=== PATIENT | female | born 1980 | race Caucasian/White ===

== ENCOUNTER 2016-10-25 11:49 | Emergency (ER) | payer OTHER ==
[~2016-10-25] VITALS: Wt 79.0 kg
[~2016-10-25 11:49] MED LIST: CLON0.2T5 PO; FAMO20TA18 PO; LEVO750T25 PO
[2016-10-25] MEDS ORDERED: DIPHENHYDRAMINE 50 MG INJ IM ONE (13:00)
[2016-10-25] MEDS ORDERED: METHYLPREDNISOLONE 125 MG INJ IM ONE (13:00)
--- NOTE | 2016-10-25 13:12 | ERD ---
ER Documentation Chief Complaint Date/Time DATE: 10/25/16 TIME: 13:08 Chief Complaint ITCHY FOLLOWING BP MEDS HPI 36-year-old female presents to the emergency department with diffuse itching and erythema that started an hour after taking her blood pressure medication this morning. Patient states that she takes medication for blood pressure usually at nighttime, she has been taking this for 4 years but does not recall the name at this time. She went to work and she is out like her blood pressure is high she felt hot, and then she took a blood pressure medication an hour later she got a rash. She does not recall taking new foods, medications or lotions or creams. She has no known allergies. She has not had any trouble swallowing, shortness of breath. ROS All systems reviewed and are negative except as per history of present illness. Medications Home Meds Active Scripts Levofloxacin* (Levaquin*) 750 Mg Tablet, 750 MG PO DAILY for 7 Days, TAB Prov:CHANDLER PHAN 07/12/15 Clonidine Hcl* (Clonidine Hcl*) 0.2 Mg Tablet, 0.2 MG PO BID, #20 TAB Prov:NICHO MERAZ MD 04/23/15 Reported Medications Famotidine* (Famotidine*) 20 Mg Tablet, 20 MG PO BID, TAB 12/22/14 Allergies Allergies: Coded Allergies: No Known Drug Allergy (Verified Allergy, Mild, 12/22/14) PMhx/Soc History of Surgery: Yes (1X C SECTION, GALLBLADDER (LASER) SURGERY, HERNIA SURGERY) Anesthesia Reaction: No Hx Neurological Disorder: No Hx Respiratory Disorders: No Hx Cardiac Disorders: No Hx Psychiatric Problems: No Hx Miscellaneous Medical Probl: No Hx Alcohol Use: No Hx Substance Use: No Hx Tobacco Use: No Physical Exam Vitals Vital Signs Date Time Temp Pulse Resp B/P Pulse Ox O2 Delivery O2 Flow Rate FiO2 10/25/16 12:02 98.0 94 18 177/75 99 Physical Exam General: Well-developed, well-nourished. The patient appears in no acute distress. HEENT: Head is normocephalic, atraumatic. No scleral icterus. Neck: Supple. Nontender. Lungs: Clear to auscultation. Normal air movement. Heart: Regular rate and rhythm. S1 and S2 are normal. No murmurs, gallops, or rubs. Abdomen: Soft, nontender, nondistended. Bowel sounds are normoactive. Extremities: No clubbing or cyanosis. Normal pulses. Moving extremities x 4. No weakness. Neurologic: Alert and oriented 3. No focal deficits. Skin: Blotchy, erythematous rash, patient's face, extremities and trunk are involved. Results 24 hrs Current Medications Medications (Trade) Dose Ordered Sig/Toan Route PRN Reason Start Time Stop Time Status Last Admin Dose Admin Diphenhydramine HCl (Benadryl) 50 mg ONCE ONCE IM 10/25/16 13:00 10/25/16 13:01 DC 10/25/16 12:53 Methylprednisolone Sodium Succinate (Solu-Medrol) 125 mg ONCE ONCE IM 10/25/16 13:00 10/25/16 13:01 DC 10/25/16 12:53 Procedures/MDM ED course: Patient was given Solu-Medrol 125 mg IM, as well as Benadryl 50 mg IM. MDM: 36-year-old female comes emergency room with allergic reaction, rash is erythematous and itchy. It is unlikely due to her blood pressure medication as she has been taking this for 4 years. She does not recall the name at this time. She likely was feeling this way because of the reaction, she felt like she was getting hot. Patient's allergic symptoms have stabilized while they have been evaluated in the department without evidence of persistent systemic reaction. Patient is healthy and capable of treating and responding to rebound reactions. Patient appropriate for outpatient allergy work up and treatment. Departure Diagnosis: Primary Impression: Allergic reaction Condition: CASEY Johnson PA-C Oct 25, 2016 13:12
[2016-10-25] MEDS ORDERED: BEN25 PO (13:13)
[2016-10-25] MEDS ORDERED: RANI150T9 PO (13:13)
[2016-10-25] MEDS ORDERED: PRED20TA PO (13:13)
== END 2016-10-25 13:56 | disposition home or self-care (01) ==
LOC: FTE 11:49
DX: R21 Rash and other nonspecific skin eruption (principal); L53.9 Erythematous condition, unspecified
CPT/HCPCS: 96372; J1200; J2930; Z7502

== ENCOUNTER 2017-10-17 08:15 | Emergency (ER) | END 2017-10-17 10:37 | disposition home or self-care (01) ==

== ENCOUNTER 2018-03-13 05:31 | Emergency (ER) | END 2018-03-13 08:39 | disposition home or self-care (01) ==

== ENCOUNTER 2018-07-01 14:35 | Emergency (ER) | payer OTHER ==
[~2018-07-01] VITALS: Ht 160 cm; Wt 81.2 kg
[~2018-07-01 14:35] MED LIST changes: -CLON0.2T5 PO; -FAMO20TA18 PO; +HYDR-4011 PO; -LEVO750T25 PO; +LOSA25TA12 PO; +OMEP20CA16 PO; +ONDA4TAB14 PO
[2018-07-01 14:38] VITALS: RESP 18; Ht 160 cm; Wt 81.2 kg
[2018-07-01] MEDS ORDERED: FAMOTIDINE 20 MG TAB PO STA (16:48)
[2018-07-01] MEDS ORDERED: LIDOCAINE/MYLANTA 40 ML BTL PO STA (16:48)
--- NOTE | 2018-07-01 16:48 | ERD ---
ER Documentation Chief Complaint Chief Complaint AP RADIATING TO LOWER BACK HPI This is a 38-year-old female with a history of heartburn and hypertension who presents ED with complaints of epigastric abdominal pain that started yesterday while eating spicy food. Patient states that the pain is constant and she rates it at a 7 out of 10 pain. Patient states that the pain is alleviated when she is sitting still and worse with movement. Patient has a history of having her gallbladder removed 19 years ago. 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 Patient states that she has had similar epigastric pain in the past. Patient was seen at [facility] on June 11, 2018 and had a full work-up and everything was unremarkable. Denies fever, chills, nausea, vomiting, diarrhea, constipation, hematemesis, hemoptysis, cough, congestion, chest pain, shortness breath, jaw pain, left arm pain, melena, hematochezia and all other symptoms. No known drug allergies. ROS All systems reviewed and are negative except as per history of present illness. Medications Home Meds Active Scripts Cephalexin* (Keflex*) 500 Mg Capsule, 500 MG PO QID for 10 Days, CAP Prov:NAOMY LAMB PA-C 07/01/18 Famotidine* (Pepcid*) 20 Mg Tablet, 20 MG PO BID for 4 Days, TAB Prov:NAOMY LAMB PA-C 07/01/18 Ondansetron (Ondansetron Odt) 4 Mg Tab.rapdis, 4 MG PO Q6H PRN for NAUSEA AND/OR VOMITING, #10 TAB Prov:MABEL RAJPUT MD 03/13/18 Hydrocodone/Acetaminophen ([place] 5-325 Tablet) 1 Each Tablet, 1 TAB PO Q6H PRN for PAIN, #7 TAB Prov:MABEL RAJPUT MD 03/13/18 Reported Medications Hydrocodone/Acetaminophen ([place] 5-325 Tablet) 1 Each Tablet, 1 EACH PO, TAB 03/13/18 Omeprazole* (Omeprazole*) 20 Mg Capsule.dr, 20 MG PO DAILY, #30 CAP 10/17/17 Losartan Potassium* (Losartan Potassium*) 25 Mg Tablet, 25 MG PO DAILY, TAB 10/17/17 Allergies Allergies: Coded Allergies: No Known Drug Allergy (Unverified Allergy, Mild, 03/13/18) PMhx/Soc History of Surgery: Yes (C SECTION, GALLBLADDER, HERNIA SURGERY, TUBAL LIGATION) Anesthesia Reaction: No Hx Neurological Disorder: No Hx Respiratory Disorders: No Hx Cardiac Disorders: Yes (HTN) Hx Psychiatric Problems: No Hx Miscellaneous Medical Probl: Yes (BILIARY PAPILLARY STENOSIS) Hx Alcohol Use: No Hx Substance Use: No Hx Tobacco Use: No Smoking Status: Never smoker FmHx Family History: No diabetes Physical Exam Vitals Vital Signs Date Temp Pulse Resp B/P (MAP) Pulse Ox O2 O2 Flow FiO2 Time Delivery Rate 07/01/18 98.5 76 18 158/77 98 14:38 (104) Physical Exam Physical Exam Vitals signs: Reviewed by me. General: Well developed, well nourished, in no acute distress. Patient is awake and alert. Head: Normocephalic, atraumatic. Eyes: Normal conjunctiva, Pupils PERRLA, EOM intact grossly ENT: Pharynx is clear, Moist mucous membranes, external ears, nose and mouth normal Neck: Supple, no masses, lymphadenopathy or JVD Respiratory: Clear to auscultation bilaterally with no wheezing, rhonchi, rales, no distress Cardiovascular: RRR, no murmurs, rubs, or gallops Abdominal: Soft, nondistended, no peritoneal signs, no rigidity, no surgical abdomen, bowel sounds present all 4 quadrants, nontender lengthy palpation all 4 quadrants, McBurney's point nontender, no rebound tenderness, Ruiz sign negative Back: No midline tenderness. No flank tenderness Neurologic: Alert and oriented, moving all extremities, normal speech, no focal weakness, no cerebellar signs. Normal mentation Skin: warm and dry, No rash Psych: Normal mood Result Diagram: 07/01/18 1543 07/01/18 1543 Results 24 hrs Laboratory Tests Test 07/01/18 15:36 07/01/18 15:43 Urine Test NEGATIVE White Blood Count 8.1 10^3/ul Red Blood Count 4.23 10^6/ul Hemoglobin 12.0 g/dl Hematocrit 36.9 % Mean Corpuscular Volume 87.2 fl Mean Corpuscular Hemoglobin 28.4 pg Mean Corpuscular Hemoglobin Concent 32.5 g/dl Red Cell Distribution Width 12.7 % Platelet Count 288 10^3/UL Mean Platelet Volume 10.0 fl Immature Granulocytes % 0.400 % Neutrophils % 58.4 % Lymphocytes % 28.4 % Monocytes % 11.2 % Eosinophils % 1.1 % Basophils % 0.5 % Nucleated Red Blood Cells % 0.0 /100WBC Immature Granulocytes # 0.030 10^3/ul Neutrophils # 4.8 10^3/ul Lymphocytes # 2.3 10^3/ul Monocytes # 0.9 10^3/ul Eosinophils # 0.1 10^3/ul Basophils # 0.0 10^3/ul Nucleated Red Blood Cells # 0.0 10^3/ul Urine Color AMANDA Urine Clarity CLOUDY Urine pH 7.0 Urine Specific [place] 1.010 Urine Ketones NEGATIVE mg/dL Urine Nitrite NEGATIVE mg/dL Urine Bilirubin NEGATIVE mg/dL Urine Urobilinogen NEGATIVE mg/dL Urine Leukocyte Esterase 2+ Maldonado/ul Urine Microscopic RBC 2 /HPF Urine Microscopic WBC 4 /HPF Urine Squamous Epithelial Cells FEW /HPF Urine Hemoglobin NEGATIVE mg/dL Urine Glucose NEGATIVE mg/dL Urine Total Protein NEGATIVE mg/dl Sodium Level 140 mmol/L Potassium Level 4.3 mmol/L Chloride Level 102 mmol/L Carbon Dioxide Level 28 mmol/L Anion Gap 10 Blood Urea Nitrogen 11 mg/dl Creatinine 0.61 mg/dl Est Glomerular Filtrat Rate mL/min > 60 mL/min Glucose Level 101 mg/dl Calcium Level 9.4 mg/dl Total Bilirubin 0.1 mg/dl Direct Bilirubin 0.00 mg/dl Indirect Bilirubin 0.1 mg/dl Aspartate Amino Transf (AST/SGOT) 53 IU/L Alanine Aminotransferase (ALT/SGPT) 65 IU/L Alkaline Phosphatase 90 IU/L Total Protein 7.8 g/dl Albumin 4.3 g/dl Globulin 3.50 g/dl Albumin/Globulin Ratio 1.22 Lipase 30 U/L Current Medications Medications Dose Sig/Toan Start Time Status Last (Trade) Ordered Route PRN Stop Time Admin Dose Reason Admin Famotidine 20 mg ONCE STAT 07/01/18 DC 07/01/18 (Pepcid) PO 16:48 07/01/18 16:56 16:49 40 ml ONCE STAT 07/01/18 DC 07/01/18 Miscellaneous PO 16:48 07/01/18 16:56 Medication 16:49 (Gi Cocktail (2)) Procedures/MDM EKG, MONITORS, & DIAGNOSTIC IMAGING: [place] [id number] Radiology Main Line: [phone] DIAGNOSTIC IMAGING REPORT Patient: ALEXIA COTTER : 1980 Age: 38 Sex: F MR #: [id number] DOS: 07/01/18 1528 Ordering MD: VIRIDIANA MIN PA-C Location: [facility] Room/Bed: PROCEDURE: US Abdomen (right upper quadrant). CLINICAL INDICATION: Abdominal pain. TECHNIQUE: Multiple real-time longitudinal and transverse images of the right upper quadrant of the abdomen were acquired utilizing a curved array transducer. Images were reviewed on a high-resolution PACS workstation. COMPARISON: CT 03/13/2018 FINDINGS: The liver is normal in size and demonstrates increased echogenicity. No focal intrahepatic mass is identified. The gallbladder is surgically absent. No intra or extrahepatic biliary dilatation is seen. The common bile duct measures 8.8 mm in maximal dimension. A common bile duct stent is in place. The portal and hepatic veins are patent demonstrating normal directional flow. The visualized portions of the pancreas are unremarkable with obscuration of the tail of the pancreas. No free fluid is identified. The right kidney measures 11.6 cm in length. The renal parenchyma demonstrates normal echogenicity. There is no perinephric fluid collection. No hydronephrosis, mass, or calculus is seen. IMPRESSION: 1. Status post cholecystectomy. 2. Common bile duct stent in place. 3. Hepatic steatosis. RPTAT: HH .Lauryn Muir MD, Date Time Electronically viewed and signed by .Lauryn Muir MD, MD on 07/01/2018 17:26 .G/ CC: BUBBA MIN PA-C [id number] LAB INTERPRETATION: CBC shows no evidence of hemorrhage or infection Chemistry shows no evidence of significant electrolyte abnormalities or renal insufficiency Liver function test shows no evidence of acute biliary or hepatic dysfunction Lipase shows no evidence of acute pancreatitis Urine remarkable for 4 WBCs, 2 RBCs, 2+ leukocyte esterase ER COURSE: The patient was given GI cocktail, famotidine The medication was well tolerated and the patient reports improvement in symptoms. The patient was stable throughout ED course. I kept the patient and/or family informed of laboratory and diagnostic imaging results throughout the emergency room course. The patient was promptly evaluated and a treatment plan was devised based on H&P and other data. This plan was discussed with the patient who agreed and had no further questions or concerns prior to discharge. MEDICAL DECISION MAKING: This is a 38-year-old female with a history of hypertension who presents ED with epigastric abdominal pain since yesterday. Patient has had bouts of similar pain over the past 2 months. Patient has a history of a cholecystectomy 19 years ago and had a stent placed for biliary tree stenosis in February 2018. test is negative. Considered causes of female-specific abdominal pain including pelvic inflammatory disease, tubo-ovarian abscess, [id number]-Mrnjps, and ovarian torsion. also considered causes of abdominal pain that are not gender-specific (e.g., appendicitis, volvulus, small bowel obstruction, mesenteric adenitis, acute cholecystitis/choledocholithiasis and other biliary pathology, etc.). Given the location of pain doubt gynecologic etiology. Patient well-appearing with normal vital signs. No peritoneal signs and abdomen benign on multiple repeat examinations. Pt well hydrated. Urinalysis shows WBCs as well as leukocyte esterase. Will treat patient for UTI. otherwise Laboratory testing and imaging here reviewed and normal. This is likely gastritis or gastroenteritis. Patient advised to follow-up with GI specialist to rule out PUD among other diseases. patient given strict return precautions for worsening pain, inability to eat/drink, fevers (temperature over 100.4F), or other concern s. Prior to discharge all questions answered. She agrees with treatment plan and understands strict return precautions. Follow-up for repeat abdominal exam within 12 hours. DISPOSITION PLAN: We discussed follow up with the patient's primary care doctor within 24 to 48 hours. Patient counseled regarding my diagnostic impression and care plan. Prior to discharge all questions answered. Pt agrees with treatment plan and understands strict return precautions. Precautionary instructions provided including instructions to return to the ER if not improving or for any worsening or changing symptoms or concerns. SPECIALIST FOLLOW UP RECOMMENDED: GI Patient has been advised to follow up with primary care in 1-2 days. Disclaimer: Inadvertent spelling and grammatical errors are likely due to EHR /dictation software use and do not reflect on the overall quality of patient care. Also, please note that the electronic time recorded on this note does not necessarily reflect the actual time of the patient encounter. Blood Pressure Assessment: Patient's blood pressure was elevated (>120/80) but a ppears stable without evidence of hypertension emergency or urgency. The patient was counseled about the risks of hypertension and urged to pursue outpatient monitoring and therapy within a week with their primary care physician. Departure Diagnosis: Primary Impression: Epigastric abdominal pain Additional Impression: UTI (urinary tract infection) Urinary tract infection type: site unspecified Hematuria presence: without hematuria Qualified Codes: N39.0 - Urinary tract infection, site not specified Condition: Stable Patient Instructions: Epigastric Pain (Uncertain Cause), Gastritis (Adult), Gas tritis Vs. Ulcer, Gastroesophageal Reflux Disease (GERD), Understanding Urinary Tract Infections (UTIs) Referrals: ABHAY BRUMFIELD MD, NAGARAJ M MD DESIGAN, GNANA MD GORDON, RICHARD K MD JOGANI, PIYUSH K [facility] () Additional Instructions: Paciente aconseja volver a Departamento de urgencias inmediatamente para sntomas nuevos o que empeoran . Paciente aconseja posteriores con el PCP en 1-2 santana . Paciente verbaliza la comprehensin y est de acuerdo con el tratamiento y el curso de accin. Si el paciente no tiene ninguna de atencin primaria pueden seguir con [facility] [address] [place] [address] o [facility] + [address] [address] NAOMY LAMB PA-C Jul 01, 2018 16:48
[2018-07-01] MEDS ORDERED: CEPH-443 PO (17:46)
[2018-07-01] MEDS ORDERED: FAMO-96 PO (17:46)
[2018-07-01 18:05] VITALS: BP 149/93; PULSE 79
== END 2018-07-01 18:07 | disposition home or self-care (01) ==
LOC: FTE 14:35
DX: N39.0 Urinary tract infection, site not specified (principal); I10 Essential (primary) hypertension
CPT/HCPCS: 36415; 76705; 80053; 81001; 83690; 84703; 85025; 87086; Z7502; Z7610

== ENCOUNTER 2018-09-08 16:01 | Emergency (ER) | payer OTHER ==
[~2018-09-08] VITALS: Wt 82.3 kg
[~2018-09-08 16:01] MED LIST changes: +CEPH-443 PO; +FAMO-96 PO
[2018-09-08] MEDS ORDERED: ACETAMINOPHEN 500 MG TAB PO STA (16:25)
[2018-09-08] MEDS ORDERED: SOD CHLORIDE 0.9% 1,000 ML IV ONE (16:30)
--- NOTE | 2018-09-08 16:42 | ERD ---
ER Documentation Chief Complaint Chief Complaint BODY PAIN, CHILLS INTERMITTENT SINCE FRIDAY HPI Patient is a 38 years old female presenting to the clinic for diffuse bodyaches, fever, chills, hyperhidrosis since Yesterday. Patient admits to recent stent extraction from pancreas yesterday with EGD. Patient admits to taking OTC flu medication without resolution. Patient denies all other ROS. ROS All systems reviewed and are negative except as per history of present illness. Medications Home Meds Active Scripts Ibuprofen* (Motrin*) 800 Mg Tab, 800 MG PO Q6, #30 TAB Prov:GENIA HIGGINBOTHAM PA-C 09/08/18 Azithromycin* (Zithromax*) 500 Mg Tablet, 500 MG PO DAILY for 3 Days, TAB Prov:GENIA HIGGINBOTHAM PA-C 09/08/18 Cephalexin* (Keflex*) 500 Mg Capsule, 500 MG PO QID for 10 Days, CAP Prov:NAOMY LAMB PA-C 07/01/18 Famotidine* (Pepcid*) 20 Mg Tablet, 20 MG PO BID for 4 Days, TAB Prov:NAOMY LAMB PA-C 07/01/18 Ondansetron (Ondansetron Odt) 4 Mg Tab.rapdis, 4 MG PO Q6H PRN for NAUSEA AND/OR VOMITING, #10 TAB Prov:MABEL RAJPUT MD 03/13/18 Hydrocodone/Acetaminophen ([place] 5-325 Tablet) 1 Each Tablet, 1 TAB PO Q6H PRN for PAIN, #7 TAB Prov:MABEL RAJPUT MD 03/13/18 Reported Medications Hydrocodone/Acetaminophen ([place] 5-325 Tablet) 1 Each Tablet, 1 EACH PO, TAB 03/13/18 Omeprazole* (Omeprazole*) 20 Mg Capsule.dr, 20 MG PO DAILY, #30 CAP 10/17/17 Losartan Potassium* (Losartan Potassium*) 25 Mg Tablet, 25 MG PO DAILY, TAB 10/17/17 Allergies Allergies: Coded Allergies: No Known Drug Allergy (Unverified Allergy, Mild, 09/08/18) PMhx/Soc History of Surgery: Yes (C SECTION, GALLBLADDER, HERNIA SURGERY, TUBAL LIGATI ON) Anesthesia Reaction: No Hx Neurological Disorder: No Hx Respiratory Disorders: No Hx Cardiac Disorders: Yes (HTN) Hx Psychiatric Problems: No Hx Miscellaneous Medical Probl: Yes (BILIARY PAPILLARY STENOSIS) Hx Alcohol Use: No Hx Substance Use: No Hx Tobacco Use: No Smoking Status: Never smoker Physical Exam Vitals Vital Signs Date Temp Pulse Resp B/P (MAP) Pulse Ox O2 O2 Flow FiO2 Time Delivery Rate 09/08/18 98.0 85 16 120/77 99 Room Air 21:52 (91) 09/08/18 100.0 94 20 120/65 95 Room Air 18:02 (83) 09/08/18 102.9 16:59 09/08/18 102.9 105 18 135/75 99 16:09 (95) Physical Exam Const: Lethargic and shaking in bed. Head: Atraumatic Eyes: Normal Conjunctiva ENT: Normal External Ears, Nose and Mouth. Neck: Full range of motion. No meningismus. Resp: Clear to auscultation bilaterally Cardio: Regular rate and rhythm, no murmurs Abd: Soft, Diffuse tenderness across abdomen, non distended. Normal bowel sounds Skin: No petechiae or rashes Back: No midline or flank tenderness Ext: No cyanosis, or edema Neur: Awake and alert Psych: Normal Mood and Affect Result Diagram: 09/08/18 1708 09/08/18 1708 Results 24 hrs Laboratory Tests Test 09/08/18 17:08 09/08/18 17:52 09/08/18 19:18 09/08/18 19:20 White Blood Count 17.0 10^3/ul Red Blood Count 4.07 10^6/ul Hemoglobin 11.5 g/dl Hematocrit 33.8 % Mean Corpuscular 83.0 fl Volume Mean Corpuscular 28.3 pg Hemoglobin Mean Corpuscular 34.0 g/dl Hemoglobin Concen t Red Cell 13.5 % Distribution Width Platelet Count 235 10^3/UL Mean Platelet 10.2 fl Volume Immature 0.800 % Granulocytes % Neutrophils % 90.5 % Lymphocytes % 5.1 % Monocytes % 3.3 % Eosinophils % 0.1 % Basophils % 0.2 % Nucleated Red 0.0 /100WBC Blood Cells % Immature 0.130 10^3/ul Granulocytes # Neutrophils # 15.4 10^3/ul Lymphocytes # 0.9 10^3/ul Monocytes # 0.6 10^3/ul Eosinophils # 0.0 10^3/ul Basophils # 0.0 10^3/ul Nucleated Red 0.0 10^3/ul Blood Cells # Urine Color AMANDA Urine Clarity CLEAR Urine pH 7.0 Urine Specific 1.027 [place] Urine Ketones TRACE mg/dL Urine Nitrite NEGATIVE mg/dL Urine Bilirubin 2+ mg/dL Urine 2+ mg/dL Urobilinogen Urine Leukocyte NEGATIVE Maldonado/ul Esterase Urine Microscopic 5 /HPF RBC Urine Microscopic 5 /HPF WBC Urine Squamous FEW /HPF Epithelial Cells Urine Hemoglobin NEGATIVE mg/dL Urine Glucose NEGATIVE mg/dL Urine Total 2+ mg/dl Protein Sodium Level 138 mmol/L Potassium Level 3.1 mmol/L Chloride Level 106 mmol/L Carbon Dioxide 24 mmol/L Level Anion Gap 8 Blood Urea 10 mg/dl Nitrogen Creatinine 0.69 mg/dl Est Glomerular > 60 mL/min Filtrat Rate mL/min Glucose Level 135 mg/dl Calcium Level 8.9 mg/dl Total Bilirubin 1.0 mg/dl Direct Bilirubin 0.00 mg/dl Indirect 1.0 mg/dl Bilirubin Aspartate Amino 91 IU/L Transf (AST/SGOT) Alanine 129 IU/L Aminotransferase (ALT/SGPT) Alkaline 173 IU/L Phosphatase Total Protein 7.0 g/dl Albumin 3.6 g/dl Globulin 3.40 g/dl Albumin/Globulin 1.05 Ratio POC Beta HCG, NEGATIVE Qualitative POC Venous 1.0 mmol/L Lactate Lactic Acid Level 1.0 mmol/L Prothrombin Time 17.6 Sec Prothrombin Time 1.4 Ratio INR International 1.44 Normalized Ratio Activated 33.7 Sec Partial Thrombopl ast Time Troponin I < 0.012 ng/ml Lipase 23 U/L Current Medications Medications Dose Sig/Toan Start Time Status Last (Trade) Ordered Route PRN Stop Time Admin Dose Reason Admin 1,000 mg ONCE STAT 09/08/18 DC 09/08/18 Acetaminophen PO 16:25 16:59 (Tylenol 09/08/18 16:37 Tab) Sodium 1,000 ml @ Q1H ONCE 09/08/18 DC 09/08/18 Chloride 1,000 mls/hr IV 16:30 16:59 09/08/18 17:29 Sodium 2,470 ml BOLUS OVER 2 09/08/18 DC 09/08/18 Chloride HOURS STAT 17:27 17:39 (NS) IV* 09/08/18 17:30 Morphine 4 mg ONCE STAT 09/08/18 DC 09/08/18 Sulfate IV 17:39 17:45 (morphine) 09/08/18 17:41 Ondansetron 4 mg ONCE STAT 09/08/18 DC 09/08/18 HCl (Zofran IV 17:39 17:45 Inj) 09/08/18 17:41 Potassium 40 meq ONCE STAT 09/08/18 DC 09/08/18 Chloride PO 18:18 18:44 (Klor-Con 20) 09/08/18 18:20 Procedures/MDM Patient was seen and evaluated for fever and chills. Gallbladder ultrasound not required due to history of cholecystectomy. Liver ultrasound is grossly unremarkable. CBC revealed leukocytosis which was followed by sepsis workup and CT abdomen/pelvis without contrast after speaking with Dr. Richmond. Patient was started on IV fluids with morphine and zofran and tylenol. Labs revealed low potassium which was followed by oral potassium (K-Dur). CXR revealed linear left basilar airspace opacity likely representing atelectasis. CT abdominal/pelvis unremarkable. Patient is experiencing post-op fever with coincidental atelectasis. Patient's sepsis workup is negative. Patient is stable and ready for discharge. Patient will go home with Azithromycin 500mg PO QD x 3D and Tylenol. Patient was advised about oral hydration. Departure Diagnosis: Primary Impression: Fever Fever type: post-procedural Qualified Codes: R50.82 - Postprocedural fever Additional Impression: Atelectasis Condition: Stable Patient Instructions: Fever Control (Adult) Referrals: [facility] Additional Instructions: Paciente aconseja volver a Departamento de urgencias inmediatamente para snt omas nuevos o que empeoran . Paciente aconseja posteriores con el PCP en 2-3 santana . Paciente verbaliza la comprehensin y est de acuerdo con el tratamiento y el curso de accin. Si el paciente no tiene ninguna de atencin primaria pueden seguir con [facility] [address] [place] [address] o [facility] + [address] [address] GENIA HIGGINBOTHAM PA-C Sep 08, 2018 16:42
[2018-09-08] MEDS ORDERED: SODIUM CHLORIDE 0.9% 1L BAG IV* STA (17:27)
[2018-09-08] MEDS ORDERED: ONDANSETRON 4 MG INJ IV STA (17:39)
[2018-09-08] MEDS ORDERED: morphine 4 MG/ML VIAL IV STA (17:39)
[2018-09-08] MEDS ORDERED: POTASSIUM CHLORIDE (SR) 20 MEQ TAB PO STA (18:18)
[2018-09-08] MEDS ORDERED: AZIT500T3 PO (20:48)
[2018-09-08 21:52] VITALS: BP 120/77; PULSE 85; RESP 16
[2018-09-08] MEDS ORDERED: IBUP800T48 PO (21:52)
== END 2018-09-08 22:09 | disposition home or self-care (01) ==
LOC: FTE 16:01
DX: J98.11 Atelectasis (principal); R10.9 Unspecified abdominal pain
CPT/HCPCS: 36415; 71045; 74176; 76705; 80053; 81001; 81025; 83605; 83690; 84484; 85025; 85610; 85730; 87040; 87086; 96361; 96374; 96375; J2270; J2405; J7030; Z7502; Z7610